=== PATIENT | female | born 1980 | race African-American/Black ===

== ENCOUNTER 2017-11-29 18:39 | Emergency (ER) | payer BC | END 2017-11-29 19:05 | disposition home or self-care (01) | LOC: NAV ERS 18:39 | DX: L25.8 Unspecified contact dermatitis due to other agents (principal); K21.9 Gastro-esophageal reflux disease without esophagitis; D50.9 Iron deficiency anemia, unspecified; D56.1 Beta thalassemia; I10 Essential (primary) hypertension; G43.909 Migraine, unspecified, not intractable, without status migrainosus; J45.909 Unspecified asthma, uncomplicated; Z79.899 Other long term (current) drug therapy | CPT/HCPCS: 99282 ==

== ENCOUNTER 2018-01-11 21:27 | Emergency (ER) | payer BC, OTHER, SELFPAY ==
[2018-01-11] MEDS ORDERED: Acetaminophen 500 MG TAB ONE (21:54)
== END 2018-01-11 22:02 | disposition home or self-care (01) ==
LOC: NAV ERS 21:27
DX: K29.70 Gastritis, unspecified, without bleeding (principal); K21.9 Gastro-esophageal reflux disease without esophagitis; I10 Essential (primary) hypertension; G43.909 Migraine, unspecified, not intractable, without status migrainosus; J45.909 Unspecified asthma, uncomplicated; Z79.899 Other long term (current) drug therapy; D50.9 Iron deficiency anemia, unspecified
CPT/HCPCS: 99284

== ENCOUNTER 2022-07-08 07:19 | Emergency (ER) | payer SELFPAY ==
[2022-07-08] MEDS ORDERED: Acetaminophen 500 MG TAB ONE (07:48)
== END 2022-07-08 08:33 | disposition home or self-care (01) ==
LOC: NAV ERS 07:19
DX: J10.1 Influenza due to other identified influenza virus with other respiratory manifestations (principal); K21.9 Gastro-esophageal reflux disease without esophagitis; D50.9 Iron deficiency anemia, unspecified; I10 Essential (primary) hypertension; Z79.899 Other long term (current) drug therapy
CPT/HCPCS: 87804; 99283

== ENCOUNTER 2022-12-29 17:57 | Emergency (ER) | payer OTHER, SELFPAY | END 2022-12-29 18:25 | disposition home or self-care (01) | LOC: NAV ERS 17:57 | DX: M54.50 Low back pain, unspecified (principal); D50.9 Iron deficiency anemia, unspecified; J45.909 Unspecified asthma, uncomplicated; K21.9 Gastro-esophageal reflux disease without esophagitis; V43.62XA Car passenger injured in collision with other type car in traffic accident, initial encounter; Z79.899 Other long term (current) drug therapy | CPT/HCPCS: 99283 ==

== ENCOUNTER 2023-04-04 20:45 | Emergency (ER) | payer SELFPAY ==
[2023-04-04 22:17] LABS: Anion Gap 15 mmol/L (10-20); BUN (Urea Nitrogen) 12 mg/dL (7.0-18.7); Calc. Creatinine Clearance 0 mL/min (70-130); Calcium 9.3 mg/dL (7.8-10.44); Carbon Dioxide 24 mmol/L (22-29); Chloride 102 mmol/L (98-107); Estimated GFR 78; Glucose 90 mg/dL (70-105); Sodium 137 mmol/L (136-145)
[2023-04-04 22:21] LABS: Troponin I Less than 0.010 ng/mL (< 0.028)
== END 2023-04-04 22:54 | disposition home or self-care (01) ==
LOC: NAV ERS 20:45
DX: M54.2 Cervicalgia (principal); M79.89 Other specified soft tissue disorders; R07.89 Other chest pain; I10 Essential (primary) hypertension; D50.9 Iron deficiency anemia, unspecified
CPT/HCPCS: 71045; 72040; 80048; 84484; 85379; 93005

== ENCOUNTER 2023-04-24 18:44 | Emergency (ER) | payer SELFPAY ==
[2023-04-24] MEDS ORDERED: Ipratropium/Albuterol 3 ML NEB ONE (19:11)
[2023-04-24] MEDS ORDERED: methylPREDNISolone Acetate 40 mg/ml Vial ONE (19:11)
== END 2023-04-24 19:30 | disposition home or self-care (01) ==
LOC: NAV ERS 18:44
DX: J45.909 Unspecified asthma, uncomplicated (principal); I10 Essential (primary) hypertension; D50.9 Iron deficiency anemia, unspecified; D56.1 Beta thalassemia
CPT/HCPCS: 94640; 96372; J1030; J7620

== ENCOUNTER 2023-07-12 12:11 | Emergency (ER) | payer BC, OTHER ==
[2023-07-12] MEDS ORDERED: Acetaminophen 500 MG TAB ONE (12:40)
== END 2023-07-12 12:59 | disposition home or self-care (01) ==
LOC: NAV ERS 12:11
DX: S80.10XA Contusion of unspecified lower leg, initial encounter (principal); J45.909 Unspecified asthma, uncomplicated; Z79.51 Long term (current) use of inhaled steroids; W19.XXXA Unspecified fall, initial encounter

== ENCOUNTER 2023-10-19 20:32 | Emergency (ER) | payer BC, OTHER ==
[2023-10-19] MEDS ORDERED: diphenhydrAMINE 25 MG CAP ONE (20:50)
== END 2023-10-19 20:55 | disposition home or self-care (01) ==
LOC: NAV ERS 20:32
DX: T78.40XA Allergy, unspecified, initial encounter (principal); I10 Essential (primary) hypertension
CPT/HCPCS: 99282

== ENCOUNTER 2024-07-05 18:20 | Emergency (ER) | payer BC, SELFPAY | END 2024-07-05 19:03 | disposition home or self-care (01) | LOC: NAV ERS 18:20 | DX: G89.29 Other chronic pain (principal); M54.6 Pain in thoracic spine; I10 Essential (primary) hypertension | CPT/HCPCS: 99283 ==

== ENCOUNTER 2025-02-03 20:53 | Emergency (ER) | payer OTHER, SELFPAY ==
[2025-02-03 21:42] LABS: #Basophils 0.1 thou/uL (0.0-0.2); #Eosinophils 0.1 thou/uL (0.0-0.7); #Lymphocytes 2.6 thou/uL (1.20-3.40); #Monocytes 0.6 thou/uL (0.11-0.59); #Neutrophils 4.9 thou/uL (1.40-6.50); %Basophils 0.9 % (0.0-1.0); %Eosinophils 1.5 % (0.0-10.0); %Lymphocytes 30.9 % (21.0-51.0); %Monocytes 6.8 % (0.0-10.0); %Neutrophils 59.8 % (42.0-75.0); Hematocrit 39.5 % (36.0-47.0); Hemoglobin 12.3 g/dL (12.0-16.0); Mean Corpuscular Hemoglobin 21.9 pg (27.0-31.0); Mean Corpuscular Volume 70.6 fl (78.0-98.0); Platelet Count 329 10x3/uL (130-400); Red Blood Cell (RBC) Count 5.60 mill/uL (4.20-5.40); White Blood Cell (WBC) Count 8.3 10x3/uL (4.8-10.8)
[2025-02-03 21:51] LABS: Microcytosis SLIGHT = 6-15 cells (100X) (0-5/hpf); Polychromasia SLIGHT = 2-3 cells (100X) (0-2/hpf)
[2025-02-03 21:52] LABS: Platelet Adequacy Comment Appears Adequate
[2025-02-03 21:54] LABS: ALT (SGPT) 8 U/L (Less than 34); AST (SGOT) 14 U/L (11-34); Albumin 3.8 g/dL (3.1-4.5); Alkaline Phosphatase 56 U/L (40-110); Anion Gap 17 mmol/L (10-20); BUN (Urea Nitrogen) 12 mg/dL (7.0-18.7); Bilirubin, Total 0.5 mg/dL (0.3-1.2); Calc. Creatinine Clearance 0 mL/min (70-130); Calcium 8.9 mg/dL (7.8-10.44); Carbon Dioxide 23 mmol/L (22-29); Chloride 102 mmol/L (98-107); Globulin 3.3 g/dL (2.4-3.5); Glucose 123 mg/dL (70-105); Potassium 3.5 mmol/L (3.5-5.1); Sodium 138 mmol/L (136-145)
[2025-02-03 21:56] LABS: Troponin I Less than 0.010 ng/mL (< 0.028)
== END 2025-02-03 22:17 | disposition home or self-care (01) ==
LOC: NAV ERS 20:53
DX: R07.89 Other chest pain (principal); I10 Essential (primary) hypertension
CPT/HCPCS: 71046; 80053; 83880; 84484; 85025; 93005; 94760